=== PATIENT | female | born 1970 | race Caucasian/White ===

== ENCOUNTER 2024-01-07 17:47 | Emergency (ER) | payer OTHER, SELFPAY ==
[2024-01-07 17:48] VITALS: BP 158/89
--- NOTE | 2024-01-07 19:00 | ED.GENMED ---
History of Present Illness
General
Chief Complaint: Fall
Source: patient
Time Seen by Provider: 01/07/24 18:48
History of Present Illness
History of Present Illness:
53yoM with a history of hypertension and type 2 diabetes presenting for evaluation after a fall about 8 hours ago. Patient was walking the dog this afternoon when she tripped and fell on her outdoor cement steps. Patient struck the right side of
head against the steps. No LOC. She also injured her right knee. Patient was able to get up immediately after the fall. She was in the shower about an hour later when she started to have worsening right knee pain. No paresthesias. She is otherwise
asymptomatic and denies any neck pain, back pain, abdominal pain, dizziness, vomiting. She is not on any blood thinners. She reports that her Tdap is up to date.
Past History
Past History
ED Past Medical History: None
ED Past Surgical History: None
Phy Exam
General Physical Exam
General Presentation: well appearing and no apparent distress
General age: appears stated age
General Skin: warm and dry
General Habitus: normal
General Mental: alert
General Hydration: appears well hydrated
ENT Exam
ENT Exam: other (No cervical spine tenderness with full ROM)
Additional ENT: +Abrasion noted to R parietal scalp without bleeding.
Pulmonary Exam
Pulmonary Exam: lungs clear, no respiratory distress, no crackles and no wheezing
Gastrointestinal Exam
Gastrointestinal Exam: non tender, soft and non distended
[place] Coma Scale
Eye Opening: Spontaneous
Verbal Response: Oriented
Motor Response: Obeys Commands
GCS Total Score: 15
Musculoskeletal Exam
Musculoskeletal Exam: other (R knee: Ecchymosis noted to medial knee with tenderness. ROM intact. 2+ DP pulse and sensation intact. )
Skin Exam
Skin Exam: warm/dry
Psychiatric Exam
Psychiatric Exam: normal mood/affect
Course
Orders/Labs/Results
Orders:
Orders
01/07/24 17:51
CT Head W/o Iv Contrast Urgent
Comment:
Reason For Exam: pain
Knee, Right 4 or More Views [CR Knee- Right 4 Or More View*] Urgent
Comment:
Reason For Exam: pain
01/07/24 19:08
Knee Immobilizer Right-Treatme ONCE
Vital Signs
Initial and Last Documented VS:
Initial Vital Signs
Temp Pulse Resp BP Pulse Ox
98.4 F 86 16 158/89 100
01/07/24 17:48 01/07/24 17:48 01/07/24 17:48 01/07/24 17:48 01/07/24 17:48
Last Documented Vital Signs
Temp Pulse Resp BP Pulse Ox
98.4 F 98 18 138/79 98
01/07/24 17:48 01/07/24 19:35 01/07/24 19:35 01/07/24 19:35 01/07/24 19:35
MDM/Problems Addressed
Differential Diagnosis Includes:
53yoF here with R knee pain after a mechanical fall earlier today. +Head strike, no LOC. She is afebrile and hemodynamically stable. She is awake, alert, with a GCS of 15. There is a scalp abrasion noted. Ecchymosis noted to R knee without
deformity. No other injuries seen on secondary survey. Cervical spine cleared via NEXUS criteria. Differential diagnosis includes but is not limited to: closed head injury, concussion, intracranial hemorrhage, fracture
CT head obtained in triage is negative for acute findings. Large joint effusion on x-ray without fracture. Patient given an knee immobilizer. Supportive care discussed. Advised f/u with orthopedics. Patient discharged in stable condition.
*Critical Care Note
Total Time (30-74mins, 75-104mins- exclusive of procedures): Not Applicable
ED Attending Note
-
Portions of this chart may have been created with voice recognition software.� Occasional wrong word or��sound alike� substitutions may have occurred due to the inherent limitations of voice recognition software.
Discharge Plan
Departure
Patient Disposition: Home (Routine Discharge)
Date of Disposition: 01/07/24
Time of Disposition: 19:08
Patient with high blood pressure during this ER visit?: Yes
Discharge Problem:
Fall from slip, trip, or stumble, Closed head injury, Right knee injury
Instructions: Muscle and bone pain - Discharge instructions
Referrals:
Mihai Schaffer MD [Active] -
Activity Restrictions/Additional Instructions:
Rest, ice, compress, and elevate your knee. Take Tylenol and ibuprofen as needed for pain. Use knee immobilizer.
Please follow-up with orthopedics if your symptoms persist.
Interventions
Interventions:
*Risk Screen - Suicide Last Done: 01/07/24 17:48
*General Assessment Last Done: 01/07/24 19:38
*Neglect/Abuse Screening Last Done: 01/07/24 19:38
ED- Fall Risk Assessment Last Done: 01/07/24 19:38
*ED COVID-19 Vaccine History Last Done: 01/07/24 19:38
*Nursing Disposition Last Done: 01/07/24 19:38
ED-Musculoskeletal Assessment Last Done: 01/07/24 19:35
ED- Neurological Assessment Last Done: 01/07/24 19:35
ED-Skin Assessment Last Done: 01/07/24 19:35
Discharge Date and Time
Discharge Date/Time: 01/07/24 19:40
Print Language: ARMENIAN
[2024-01-07 19:35] VITALS: BP 138/79
== END 2024-01-07 19:40 | disposition home or self-care (01) ==
LOC: EMR 17:47
PROVIDERS: EMERGENCY PHYSICIAN Student in an Organized Health Care Education/Training Program; FAMILY PHYSICIAN Family Medicine
DX: S09.90XA Unspecified injury of head, initial encounter (principal); S80.01XA Contusion of right knee, initial encounter; W10.9XXA Fall (on) (from) unspecified stairs and steps, initial encounter; Y93.K1 Activity, walking an animal; I10 Essential (primary) hypertension; E11.9 Type 2 diabetes mellitus without complications
CPT/HCPCS: 99284; 29505; 70450; 73564